=== PATIENT | female | born 1970 | race Caucasian/White ===

== ENCOUNTER 2017-08-11 12:10 | Inpatient (IN) | payer OTHER ==
[~2017-08-11] VITALS: Ht 177.8 cm; Wt 94.3 kg
[2017-08-11 13:13] LABS: HEMATOCRIT 43.5 % (36.0-46.0); MCH 32.3 PG (29.0-34.0); MCHC 33.3 G/DL (30.0-36.0); MCV 96.9 FL (83-99); MEAN PLAT.VOLUME 9.8 uM^3 (9.5-12.4); PLATELET COUNT 230 K/uL (156-360); RBC DIS.WIDTH-CV 13.1 % (11.8-14.6); RBC DIS.WIDTH-SD 46.9 % (39-53); RED BLOOD COUNT 4.49 M/uL (3.80-5.20); WHITE BLOOD COUNT 7.8 K/uL (4.1-10.2)
[2017-08-11 13:14] LABS: AMPHETAMINE NEGATIVE (500 ng/mL); BARBITURATES NEGATIVE (200 ng/mL); BENZODIAZEPINES NEGATIVE (150 ng/mL); COCAINE NEGATIVE (150 ng/mL); INTERNAL CONTROLS VALID? YES; METHADONE NEGATIVE (200 ng/mL); METHAMPHETAMINE NEGATIVE (500 ng/mL); OPIATES (MORPHINE) NEGATIVE (100 ng/mL); OXYCODONE NEGATIVE (100 ng/mL); PHENCYCLIDINE NEGATIVE (25 ng/mL); PROPOXYPHENE NEGATIVE (300 ng/mL); THC CANNABINOIDS NEGATIVE (50 ng/mL); TRICYCLIC ANTIDEPRESSANTS NEGATIVE (300 ng/mL)
[2017-08-11 13:21] LABS: CHLORIDE 103 mEq/L (99-109); POTASSIUM 3.8 mEq/L (3.7-5.4); SODIUM 138 mEq/L (136-147)
[2017-08-11 13:22] LABS: GLUCOSE 116 mg/dL (70-99)
[2017-08-11 13:24] LABS: ANION GAP 8 MEQ/L (2-14)
[2017-08-11 13:26] LABS: GFR ESTIMATE (CALCULATED) > 59 mL/min/; SERUM ETHYL ALCOHOL < 10 mg/dL
[2017-08-11 13:27] LABS: UREA NITROGEN (BUN) 13 mg/dL (9-23)
[2017-08-11 19:40] VITALS: BP 140/63
[2017-08-11 19:52] VITALS: BP 140/63
[2017-08-11] MEDS ORDERED: ALEVE220 MG PO (20:49)
[2017-08-12 08:07] VITALS: BP 144/85
[2017-08-12 15:39] VITALS: BP 124/74
[2017-08-13 07:27] VITALS: BP 119/83
[2017-08-13 15:53] VITALS: BP 108/58
[2017-08-14 07:36] VITALS: BP 120/63
[2017-08-14 15:21] VITALS: BP 108/67
[2017-08-15 07:47] VITALS: BP 125/74
[2017-08-15 15:48] VITALS: BP 141/86
[2017-08-16 07:39] VITALS: BP 124/70
[2017-08-16] MEDS ORDERED: HYDROXYZINE PAM25 MG PO (09:25)
[2017-08-16] MEDS ORDERED: SERTRALINE HCL100 MG PO (09:25)
== END 2017-08-16 12:52 | disposition home or self-care (01) | DRG 885 ==
LOC: EME 12:10 → 1WEST 16:40 → EDOF 16:40 → ENRESERV 19:15 → 1WEST 19:33
DX: F33.2 Major depressive disorder, recurrent severe without psychotic features (principal); R45.851 Suicidal ideations; Z59.0 Homelessness; Z81.8 Family history of other mental and behavioral disorders; F17.200 Nicotine dependence, unspecified, uncomplicated
CPT/HCPCS: 80048; 85027; 90839; 97150 GO; 97165 GO; 99281; 99283; G0480; Q0177

== ENCOUNTER 2018-05-23 00:52 | Emergency (ER) | payer OTHER ==
[~2018-05-23] VITALS: Ht 177.8 cm; Wt 98.0 kg
[~2018-05-23 00:52] MED LIST: ALEVE220 MG PO; HYDROXYZINE PAM25 MG PO; SERTRALINE HCL100 MG PO
[2018-05-23] MEDS ORDERED: MOTRIN800 MG PO (04:27)
[2018-05-23] MEDS ORDERED: NORCO 7.5/321 TABLET PO (04:27)
[2018-05-23 05:49] VITALS: BP 94/57
== END 2018-05-23 05:50 | disposition home or self-care (01) ==
LOC: EME 00:52 → EXP 00:52
DX: S52.572A Other intraarticular fracture of lower end of left radius, initial encounter for closed fracture (principal); S52.612A Displaced fracture of left ulna styloid process, initial encounter for closed fracture; S62.002A Unspecified fracture of navicular [scaphoid] bone of left wrist, initial encounter for closed fracture; W01.0XXA Fall on same level from slipping, tripping and stumbling without subsequent striking against object, initial encounter; F17.200 Nicotine dependence, unspecified, uncomplicated
CPT/HCPCS: 73110; 99281; 99285; J3010; J7030

== ENCOUNTER 2018-06-03 13:37 | Day surgery (SDC) | payer OTHER ==
[~2018-06-03] VITALS: Ht 177.8 cm; Wt 97.0 kg
[~2018-06-03 13:37] MED LIST changes: +MOTRIN600 MG PO; +MOTRIN800 MG PO; +NORCO 7.5/321 TABLET PO; +VISTARIL25 MG PO; +ZOLOFT100 MG PO
[2018-06-03 14:42] VITALS: BP 126/60
[2018-06-03 18:39] VITALS: BP 140/67
[2018-06-03 19:34] VITALS: BP 130/67
== END 2018-06-03 19:44 | disposition home or self-care (01) ==
LOC: SDC 13:37
PROVIDERS: Orthopaedic Surgery Hand Surgery
PROC: 0PSJ04Z Reposition Left Radius with Internal Fixation Device, Open Approach (ICD-10-PCS; principal; 2018-06-03)
DX: S52.572A Other intraarticular fracture of lower end of left radius, initial encounter for closed fracture (principal); S52.612A Displaced fracture of left ulna styloid process, initial encounter for closed fracture; W18.09XA Striking against other object with subsequent fall, initial encounter; Y93.01 Activity, walking, marching and hiking; Z88.0 Allergy status to penicillin; Z88.2 Allergy status to sulfonamides; Z88.3 Allergy status to other anti-infective agents; F17.200 Nicotine dependence, unspecified, uncomplicated
CPT/HCPCS: 73100; 76000; 81025; C1713; J0690; J1100; J1170; J2250; J2405; J3010; S0020